=== PATIENT | male | born 1975 | race Caucasian/White ===

== ENCOUNTER 2017-04-14 20:15 | Emergency (ER) | payer OTHER ==
[2017-04-14] MEDS ORDERED: KETOROLAC TROMETHAMINE INJ/PF 30 MG/1 ML SDV IV ONE (21:10)
[2017-04-14] MEDS ORDERED: NORMAL SALINE 1000 ML 1,000 ML IV ONE (21:10)
[2017-04-14 21:22] LABS: ABSOLUTE EOSINOPHILS # (AUTO) 0.1 10^3/uL (0.0-0.6); ABSOLUTE LYMPHOCYTES (AUTO) 1.3 10^3/uL (0.5-4.7); ABSOLUTE MONOCYTES (AUTO) 0.9 10^3/uL (0.1-1.4); ABSOLUTE NEUT (AUTO) 8.3 10^3/uL (1.7-8.2); BASOPHILS % (AUTO) 0.5 % (0-2); HEMOGLOBIN 11.9 g/dL (13.5-17.0); HGB HCT DIFFERENCE 2.7; LYMPHOCYTES % (AUTO) 12.5 % (13-45); MEAN CORPUSCULAR HEMOGLOBIN 30.2 pg (27.0-33.4); MEAN CORPUSCULAR HGB CONC 36.2 g/dL (32.0-36.0); MEAN CORPUSCULAR VOLUME 84 fl (80-97); MONOCYTES % (AUTO) 8.3 % (3-13); RED BLOOD COUNT 3.95 10^6/uL (4.35-5.55); RED CELL DISTRIBUTION WIDTH 13.5 % (11.5-14.0); SEGMENTED NEUTROPHILS % (AUTO) 77.7 % (42-78); WHITE BLOOD COUNT 10.7 10^3/uL (4.0-10.5)
--- NOTE | 2017-04-14 21:24 | RADIOLOGY REPORT (SQ) ---
EXAM DESCRIPTION: ANKLE RIGHT COMPLETE COMPLETED DATE/TIME: 04/14/2017 9:15 pm REASON FOR STUDY: fall with ankle pain and swelling COMPARISON: None. NUMBER OF VIEWS: Three views. TECHNIQUE: AP, lateral, and oblique radiographic images acquired of the right ankle. LIMITATIONS: None. FINDINGS: MINERALIZATION: Normal. BONES: Moderately displaced spiral fracture through the distal fibula above the level of the syndesmo sis. Moderately displaced oblique fracture through the medial malleolus. Probable minimally displac ed vertical fracture through the posterior malleolus. JOINTS: There is likely disruption of the syndesmosis along with widening of the medial tibiotalar ashley int space compatible with additional ligamentous injury. SOFT TISSUES: Associated soft tissue swelling. OTHER: No other significant finding. IMPRESSION: COMPLEX RIGHT ANKLE FRACTURES DESCRIBED ABOVE. TECHNICAL DOCUMENTATION: JOB ID: [id number] [employer]- All Rights Reserved
--- NOTE | 2017-04-14 21:25 | RADIOLOGY REPORT (SQ) ---
EXAM DESCRIPTION: FOOT RIGHT 2 VIEWS COMPLETED DATE/TIME: 04/14/2017 9:15 pm REASON FOR STUDY: FALL, PAIN COMPARISON: CORRELATION MADE TO ANKLE RADIOGRAPHS PERFORMED THE SAME TIME. NUMBER OF VIEWS: Two views. TECHNIQUE: AP and lateral radiographic images acquired of the right foot. LIMITATIONS: None. FINDINGS: MINERALIZATION: Normal. BONES: Osseous structures of the foot are intact. Partial visualization of distal fibular, medial ma lleolar, and posterior malleolar fractures. JOINTS: No effusions. SOFT TISSUES: No soft tissue swelling. No foreign body. OTHER: No other significant finding. IMPRESSION: PARTIAL VISUALIZATION ANKLE FRACTURES. NO ACUTE INJURY OF THE RIGHT FOOT IDENTIFIED. TECHNICAL DOCUMENTATION: JOB ID: [id number] [employer]- All Rights Reserved
[2017-04-14 21:37] LABS: ANION GAP 14 (5-19); BLOOD UREA NITROGEN 32 mg/dL (7-20); CALCIUM 9.8 mg/dL (8.4-10.2); CARBON DIOXIDE 27 mmol/L (22-30); CHLORIDE 91 mmol/L (98-107); CREATININE RESULT 2.17 mg/dL (0.52-1.25); GLUCOSE 106 mg/dL (75-110)
--- NOTE | 2017-04-14 21:41 | ER Document Report ---
ED General - General Chief Complaint: Ankle Injury Stated Complaint: FOOT PAIN Time Seen by Provider: 04/14/17 21:10 Notes: Patient is a 41-year-old male with a past medical history who presents after reported syncopal episode in which he apparently twisted his right ankle and struck it on a door. Patient states he was standing looking out of his cell through the window when he became lightheaded and passed out. States that he woke up with severe, constant, sharp pain to the right ankle. He was unable to bear weight on the ankle. Nothing improves the pain to the ankle he states any attempt at moving the ankle worsens the pain. He denies that anybody assaulted him or injured his ankle. He has no prior injury to the right ankle. He denies any history of syncope in the past. Denies any cardiac history or history of chronic kidney disease. TRAVEL OUTSIDE OF THE [place] IN LAST 30 DAYS: No - Related Data Allergies/Adverse Reactions: gabapentin [From Neurontin] Allergy (Verified 04/14/17 23:21) tramadol HCl [From Ultram] Allergy (Verified 04/14/17 23:21) Past Medical History - General Information source: Patient - Social History Smoking Status: Never Smoker Frequency of alcohol use: None Drug Abuse: None Lives with: Spouse/Significant other Family History: Reviewed & Not Pertinent - Past Medical History Cardiac Medical History: Reports: Hx Hypertension Renal/ Medical History: Denies: Hx Peritoneal Dialysis Past Surgical History: Reports: Hx Vascular Surgery - Immunizations Hx Diphtheria, Pertussis, Tetanus Vaccination: Yes Review of Systems - Review of Systems Notes: Constitutional: Negative for fever. HENT: Negative for sore throat. Eyes: Negative for visual changes. Cardiovascular: Negative for chest pain. Positive for syncope Respiratory: Negative for shortness of breath. Gastrointestinal: Negative for abdominal pain, vomiting or diarrhea. Genitourinary: Negative for dysuria. Musculoskeletal: Positive for right ankle injury Skin: Negative for rash. Neurological: Negative for headaches, weakness or numbness. 10 point ROS negative except as marked above and in HPI. Physical Exam - Vital signs Vitals: Temp Pulse BP Pulse Ox 97.5 F 103 H 83/49 L 94 04/14/17 20:33 04/14/17 20:33 04/14/17 20:33 04/14/17 20:33 Interpretation: Hypotensive, Tachycardic Notes: PHYSICAL EXAMINATION: GENERAL: Appears to be uncomfortable and in no acute distress HEAD: Atraumatic, normocephalic. EYES: Pupils equal round and reactive to light, extraocular movements intact, sclera anicteric, conjunctiva are normal. ENT: nares patent, oropharynx clear without exudates. Moist mucous membranes. NECK: Normal range of motion, supple without lymphadenopathy LUNGS: Breath sounds clear to auscultation bilaterally and equal. No wheezes rales or rhonchi. HEART: Regular rate and rhythm without murmurs. 2+ DP pulse bilaterally. Capillary refill less than 1 second in all digits of the right foot ABDOMEN: Soft, nontender, normoactive bowel sounds. No guarding, no rebound. No masses appreciated. EXTREMITIES: Bruising and apparent deformity of the right ankle. Resting in an everted position. NEUROLOGICAL: No focal neurological deficits. Moves all extremities spontaneously and on command. PSYCH: Normal mood, normal affect. SKIN: Warm, Dry, normal turgor, no rashes or lesions noted. Course - Re-evaluation Re-evalutation: 04/14/17 21:40 Patient presents after a syncopal episode in which she states he became lightheaded and then lost consciousness unfortunately rolling his right ankle. Patient initially mildly hypotensive which did resolve after administration of IV fluids, alert, without focal neurologic deficits at time of arrival. Denies syncope was during exertion. No preceding symptoms of palpitations, chest pain, or shortness of breath. Patient asymptomatic at time of arrival. EKG is without evidence of HCOM, right heart strain, ST changes to suggest ischemia, prolong QTc, delta wave, epsilon wave, or Brugada syndrome. Patient denies any family history of sudden cardiac , personal history of of structural heart disease. Patient denies any symptoms to suggest an acute PE, FL, TAD, SAH, seizure, or acute GI bleed as the etiology of their syncope today. On exam, no murmurs to suggest critical aortic stenosis as possible etiology. Unfortunately , patient did sustain a significant injury to the right ankle during this syncopal event today with a distal fibular, medial malleolar, and posterior malleolar fracture with disruption of the syndesmosis. He will require transfer for orthopedic surgical management. I have contacted [facility] regarding this concern 04/14/17 22:11 Patient's laboratories do show mild acute kidney injury with associated prerenal azotemia likely secondary to dehydration. Patient does admit to poor oral intake while in penitentiary. His blood pressure has completely normalized after receiving IV fluids. I discussed with Dr. Luiz Henry the orthopedic surgeon cnc applications engineer for orthopedic surgery. We reviewed the imaging and laboratories and he has agreed to accept the patient with a hospitalist consultation regarding patient's acute kidney injury. Patient has been placed in a posterior long-leg splint. 04/15/17 00:50 Transport has arrived for patient transfer. He is stable for transfer at this time. - Vital Signs Vital signs: Temp Pulse Resp BP Pulse Ox 97.5 F 103 H 20 105/54 L 96 04/14/17 20:33 04/14/17 20:33 04/15/17 00:46 04/15/17 00:46 04/15/17 00:46 - Laboratory Result Diagrams: 04/14/17 21:00 04/14/17 21:00 Laboratory results interpreted by me: 04/14/17 04/14/17 21:00 21:00 WBC 10.7 H RBC 3.95 L Hgb 11.9 L Hct 33.0 L MCHC 36.2 H Lymphocytes % 12.5 L Absolute Neutrophils 8.3 H Sodium 132.0 L Chloride 91 L BUN 32 H Creatinine 2.17 H Est GFR ( Amer) 40 L Est GFR (Non-Af Amer) 33 L - Diagnostic Test Radiology reviewed: Image reviewed, Reports reviewed Radiology results interpreted by me: 04/15/17 03:40 Right ankle x-ray: Distal fibular and distal tibial fracture - EKG Interpretation by Me Additional EKG results interpreted by me: 04/15/17 03:41 Normal sinus rhythm. Rate 99. No ST elevations or depressions. QTC is 426. Procedures - Immobilization Right Ankle Pre-Proc Neuro Vasc Exam: Normal Immobilizer type: Long leg posterior Performed by: Provider assisted Post-Proc Neuro Vasc Exam: Normal, Unchanged from pre-exam Alignment checked and good: Yes Discharge - Discharge Clinical Impression: Acute kidney injury Bimalleolar fracture Qualifiers: Encounter type: initial encounter Fracture type: closed Laterality: right Qualified Code(s): S82.841A - Displaced bimalleolar fracture of right lower leg , initial encounter for closed fracture Syncope Qualifiers: Syncope type: unspecified Qualified Code(s): R55 - Syncope and collapse Condition: Fair Disposition: [facility]
[2017-04-14] MEDS: MORPHINE SULFATE 10 MG/ML INJ IV PRN (22:04)
[2017-04-15] MEDS: MORPHINE SULFATE 10 MG/ML INJ IV PRN (00:42)
[2017-04-15 01:00] VITALS: BP 105/54
--- NOTE | 2017-04-15 10:37 | EKG REPORT ---
SEVERITY:- NORMAL ECG - SINUS RHYTHM : Confirmed by: Dee Betancourt MD 15-Apr-2017 10:36:20
== END 2017-04-15 01:05 | disposition short-term general hospital (02) ==
LOC: ER 20:15
PROC: 2W3LX1Z Immobilization of Right Lower Extremity using Splint (ICD-10-PCS; principal; 2017-04-14)
DX: N17.9 Acute kidney failure, unspecified (principal); S82.841A Displaced bimalleolar fracture of right lower leg, initial encounter for closed fracture; X50.0XXA Overexertion from strenuous movement or load, initial encounter; I10 Essential (primary) hypertension
CPT/HCPCS: 93005; 99285; 96361; 96374; 96375; 36415; 82962; 85025; 80048; 84484; 73610; 73620; 93010; 29505; J1885; J2270 ×2; J7030